=== PATIENT | male | born 1995 | race Caucasian/White ===

== ENCOUNTER 2019-04-02 19:49 | Emergency (ER) | payer OTHER ==
[2019-04-02 21:01] LABS: #Basophils 0.1 thou/uL (0.0-0.2); #Eosinphils 0.6 thou/uL (0.0-0.7); #Lymphocytes 1.6 thou/uL (1.20-3.40); #Monocytes 1.1 thou/uL (0.11-0.59); #Neutrophils 11.5 thou/uL (1.40-6.50); %Basophils 0.4 % (0.0-1.0); %Eosinophils 3.7 % (0.0-10.0); %Lymphocytes 10.5 % (21.0-51.0); %Monocytes 7.3 % (0.0-10.0); Hemoglobin 14.5 g/dL (14.0-18.0); Mean Corpuscular HGB CONC 32.5 g/dL (32.0-36.0); Mean Corpuscular Hemoglobin 30.2 pg (27.0-31.0); Mean Corpuscular Volume 92.6 fL (78.0-98.0); Mean Platelet Volume 6.8 fL (7.4-10.4); Platelet Count 359 thou/uL (130-400); RBC Distribution Width 11.4 % (11.5-14.5); White Blood Cell (WBC) Count 14.8 thou/uL (4.8-10.8)
[2019-04-02 21:13] LABS: ALT (SGPT) 12 U/L (8-55); AST (SGOT) 18 U/L (5-34); Albumin 4.1 g/dL (3.5-5.0); Alkaline Phosphatase 85 U/L (40-150); Anion Gap 12 mmol/L (10-20); BUN (Urea Nitrogen) 15 mg/dL (8.9-20.6); Bilirubin, Total 0.9 mg/dL (0.2-1.2); Calc. Creatinine Clearance 0 mL/min (70-130); Calcium 9.4 mg/dL (7.8-10.44); Carbon Dioxide 28 mmol/L (22-29); Chloride 103 mmol/L (98-107); Estimated GFR-MDRD 79; Globulin 2.7 g/dL (2.4-3.5); Glucose 65 mg/dL (70-105); Protein, Total 6.8 g/dL (6.0-8.3); Sodium 139 mmol/L (136-145)
--- NOTE | 2019-04-02 21:59 | RAD ---
RIGHT KNEE FOUR VIEWS: HISTORY: Abscess, right knee. Right knee pain and swelling. FINDINGS: No fracture, dislocation, or bony destruction is identified. No periosteal reaction is seen. POS: H
[2019-04-03] MEDS ORDERED: Ketorolac Tromethamine 30 MG/ML VIAL ONE (00:04)
[2019-04-03] MEDS ORDERED: Lidocaine 1% PF 5 ML VIAL ONE (02:34)
[2019-04-03] MEDS ORDERED: Adacel (T-DAP) 0.5 ML SYRINGE ONE (03:05)
[2019-04-03] MEDS ORDERED: Sulfameth/Trimethoprim DS 800-160mg TAB ONE ×2 (03:05→03:08)
[2019-04-03] MEDS ORDERED: Cephalexin 250 MG CAP ONE (03:09)
[2019-04-03] MEDS ORDERED: Acetaminophen/Codeine 30-300mg Tablet ONE (03:29)
== END 2019-04-03 03:32 | disposition home or self-care (01) ==
LOC: ERS 19:49
DX: L03.115 Cellulitis of right lower limb (principal); F17.210 Nicotine dependence, cigarettes, uncomplicated; J45.909 Unspecified asthma, uncomplicated; Z79.899 Other long term (current) drug therapy
CPT/HCPCS: 10060; 36415; 80053; 85025; 85652; 87070; 87077; 87186; 87205; 90715; 96372; J1885; J2001